=== PATIENT | female | born 1980 ===

== ENCOUNTER → 2020-01-08 | Outpatient (CLI) | payer OTHER | END | disposition home or self-care (01) | LOC: SONOGRAMA 07:42 → MAMO-SONO 11:15 | DX: R59.0 Localized enlarged lymph nodes (principal) ==

== ENCOUNTER 2023-02-21 08:16 | Outpatient (CLI) | payer OTHER | END 2023-02-21 08:30 | disposition home or self-care (01) | LOC: MRI 08:16 | PROVIDERS: ATTEND General Practice | DX: R19.00 Intra-abdominal and pelvic swelling, mass and lump, unspecified site (principal) | CPT/HCPCS: 72197 ==

== ENCOUNTER 2023-11-08 11:08 | Outpatient (CLI) | payer OTHER | END 2023-11-08 11:40 | disposition home or self-care (01) | LOC: SONOGRAMA 11:08 | PROVIDERS: ATTEND Internal Medicine Endocrinology, Diabetes & Metabolism | DX: R10.31 Right lower quadrant pain (principal) ==